=== PATIENT | male | born 1980 | race African-American/Black ===

== ENCOUNTER 2018-04-13 11:34 | Emergency (ER) | payer BC ==
--- NOTE | 2018-04-13 12:42 | RAD REPORT ---
EXAM DESCRIPTION: CT - Head Brain Wo Cont - 04/13/2018 12:32 pm CLINICAL HISTORY: Migraine headache, photophobia COMPARISON: None. TECHNIQUE: Axial 5 mm thick images of the head were obtained without IV contrast. All CT scans are performed using dose optimization technique as appropriate and may include automated exposure control or mA/KV adjustment according to patient size. FINDINGS: No intracranial hemorrhage, mass, edema or shift of mid-line structures. No acute infarcti on changes seen. No abnormal extra-axial fluid collections. Ventricles are normal. Mastoid air cells and visualized portions of the paranasal sinuses are clear. No acute bone findings seen. 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 Two small match ing defects in the parietal bone are probably from far remote ventriculostomy tubes. IMPRESSION: No hemorrhage, edema or acute intracranial finding.
[2018-04-13] MEDS ORDERED: METOCLOPRAMIDE 10 MG/2mL INJ ONE (12:59)
[2018-04-13] MEDS ORDERED: KETOROLAC 30 MG/ML INJ ONE (13:00)
[2018-04-13] MEDS ORDERED: DIPHENHYDRAMINE 50 MG/ML VIAL ONE (13:00)
[2018-04-13] MEDS ORDERED: NA CHLORIDE 0.9% 1,000 ML ONE (13:00)
--- NOTE | 2018-04-13 14:06 | EDPHYS ---
Physician Documentation [facility] Name: Sadi Ashton Age: 38 yrs Sex: Male : 1980 Arrival Date: 04/13/2018 Time: 11:38 Bed 10 Private MD: Jian Oakes T ED Physician Victor Hugo Lemus HPI: 04/13 13:00 This 38 yrs old Black Male presents to ER via Ambulatory with complaints of Headache. pm1 13:00 The patient complains of pain to the forehead and left eye. The patient describes the pm1 headache as aching, constant. Onset: The symptoms/episode began/occurred 4 day(s) ago. Associated signs and symptoms: Pertinent positives: nausea, Photophobia Pertinent negatives: fever, neck stiffness, paresthesias, vision changes, vision loss, vomiting, weakness. Severity of symptoms: in the emergency department the pain is actually worse. Headache History: Other Hx of migraines. The symptoms are alleviated by nothing. the symptoms are aggravated by lights. The patient has experienced similar episodes in the past, a few times. The patient has been recently seen by a physician: the patient's primary care provider, Dr. Oakes earlier today. Historical: - Allergies: 11:51 No Known Allergies; jl7 - Home Meds: 11:51 None [Active]; jl7 - PMHx: 11:51 Migraines; jl7 - PSHx: 11:51 None; jl7 - Immunization history:: Adult Immunizations up to date. - Social history:: Smoking status: Patient/guardian denies using tobacco. - Ebola Screening: : No symptoms or risks identified at this time. ROS: 13:00 Constitutional: Negative for fever, chills, and weight loss, Eyes: Negative for injury, pm1 pain, redness, and discharge, ENT: Negative for injury, pain, and discharge, Neck: Negative for injury, pain, and swelling, Cardiovascular: Negative for chest pain, palpitations, and edema, Respiratory: Negative for shortness of breath, cough, wheezing, and pleuritic chest pain, Abdomen/GI: Negative for abdominal pain, nausea, vomiting, diarrhea, and constipation, Back: Negative for injury and pain, MS/Extremity: Negative for injury and deformity, Skin: Negative for injury, rash, and discoloration. 13:00 Neuro: Positive for headache, Negative for dizziness, gait disturbance, loss of consciousness, numbness, seizure activity, tingling, weakness. Exam: 13:00 Constitutional: This is a well developed, well nourished patient who is awake, alert, pm1 and in no acute distress. Head/Face: Normocephalic, atraumatic. Eyes: Pupils equal round and reactive to light, extra-ocular motions intact. Lids and lashes normal. Conjunctiva and sclera are non-icteric and not injected. Cornea within normal limits. Periorbital areas with no swelling, redness, or edema. ENT: Nares patent. No nasal discharge, no septal abnormalities noted. Tympanic membranes are normal and external auditory canals are clear. Oropharynx with no redness, swelling, or masses, exudates, or evidence of obstruction, uvula midline. Mucous membranes moist. Neck: Trachea midline, no thyromegaly or masses palpated, and no cervical lymphadenopathy. Supple, full range of motion without nuchal rigidity, or vertebral point tenderness. No Meningismus. Chest/axilla: Normal chest wall appearance and motion. Nontender with no deformity. No lesions are appreciated. Cardiovascular: Regular rate and rhythm with a normal S1 and S2. No gallops, murmurs, or rubs. Normal PMI, no JVD. No pulse deficits. Respiratory: Lungs have equal breath sounds bilaterally, clear to auscultation and percussion. No rales, rhonchi or wheezes noted. No increased work of breathing, no retractions or nasal flaring. Abdomen/GI: Soft, non-tender, with normal bowel sounds. No distension or tympany. No guarding or rebound. No evidence of tenderness throughout. Back: No spinal tenderness. No costovertebral tenderness. Full range of motion. Skin: Warm, dry with normal turgor. Normal color with no rashes, no lesions, and no evidence of cellulitis. MS/ Extremity: Pulses equal, no cyanosis. Neurovascular intact. Full, normal range of motion. 13:00 Neuro: Orientation: is normal, Mentation: is normal, Cranial nerves: CN II- XII are normal as tested, Cerebellar function: normal finger to nose testing, Motor: moves all fours, strength is normal, strength is 5/5 in all extremities, Sensation: is normal, no obvious gross deficits, Gait: is steady, at a normal pace, without difficulty. Vital Signs: 11:51 BP 125 / 85; Pulse 78; Resp 16 S; Temp 99.1(O); Pulse Ox 100% on R/A; Weight 115.67 kg jl7 (R); Height 6 ft. 3 in. (190.50 cm) (R); Pain 6/10; 11:51 Body Mass Index 31.87 (115.67 kg, 190.50 cm) jl7 MDM: 12:12 Patient medically screened. pm1 14:05 Data reviewed: vital signs. Data interpreted: Pulse oximetry: on room air is 100 %. pm1 Interpretation: normal. Counseling: I had a detailed discussion with the patient and/or guardian regarding: the historical points, exam findings, and any diagnostic results supporting the discharge/admit diagnosis, radiology results, the need for outpatient follow up, to return to the emergency department if symptoms worsen or persist or if there are any questions or concerns that arise at home. 04/13 12:22 Order name: CT Head Brain wo Cont; Complete Time: 12:42 pm1 Administered Medications: 13:09 Drug: Reglan 10 mg Route: IVP; Site: left antecubital; iw 14:14 Follow up: Response: No adverse reaction; Pain is decreased iw 13:09 Drug: NS 0.9% 1000 ml Route: IV; Rate: 1000 ml; Site: left antecubital; iw 13:10 Drug: Benadryl 25 mg Route: IVP; Site: left antecubital; iw 14:14 Follow up: Response: No adverse reaction; Pain is decreased iw 13:10 Drug: TORadol 30 mg Route: IVP; Site: left antecubital; iw 14:14 Follow up: Response: No adverse reaction iw Disposition: 19:07 Co-signature as Attending Physician, Victor Hugo Lemus MD. rn Disposition: 04/13/18 14:06 Discharged to Home. Impression: Headache. - Condition is Stable. - Discharge Instructions: Migraine Headache. - Prescriptions for Fiorinal 50- 325-40 mg Oral Capsule - take 1 capsule by ORAL route every 4 hours As needed - not to exceed 6 capsules per day; 20 capsule. - Medication Reconciliation Form, Thank You Letter, Work release form form. - Follow up: Emergency Department; When: As needed; Reason: Worsening of condition. Follow up: Jian Oakes MD; When: 2 - 3 days; Reason: Recheck today's complaints, Continuance of care, Re-evaluation by your physician. - Problem is new. - Symptoms have improved. Signatures: Dispatcher [employer] EDLisa Kruger, RN RN Victor Hugo Hunter MD MD rn Marinas, Patrick, RIGGING LOFT REPAIRER RIGGING LOFT REPAIRER pm1 Sammi Reyez, RN RN jl7 Corrections: (The following items were deleted from the chart) 14:15 14:06 04/13/2018 14:06 Discharged to Home. Impression: Headache. Condition is Stable. iw Forms are Medication Reconciliation Form, Thank You Letter, Antibiotic Education, Prescription Opioid Use. Follow up: Emergency Department; When: As needed; Reason: Worsening of condition. Follow up: Jian Oakes; When: 2 - 3 days; Reason: Recheck today's complaints, Continuance of care, Re-evaluation by your physician. Problem is new. Symptoms have improved. pm1
--- NOTE | 2018-04-13 14:06 | ER ---
Nurse's Notes [facility] Name: Sadi Ashton Age: 38 yrs Sex: Male : 1980 Arrival Date: 04/13/2018 Time: 11:38 Bed 10 Private MD: Jian Oakes T Diagnosis: Headache Presentation: 04/13 11:48 Presenting complaint: Patient states: "Dr. Childs sent me because I've been having jl7 migraines since Monday. The light bother's me and I feel like my face is sore." Denies numbness, weakness, blurred vision. Transition of care: patient was not received from another setting of care. Onset of symptoms was April 09, 2018. Risk Assessment: Do you want to hurt yourself or someone else? Patient reports no desire to harm self or others. Initial Sepsis Screen: Does the patient meet any 2 criteria? No. Patient's initial sepsis screen is negative. Does the patient have a suspected source of infection? No. Patient's initial sepsis screen is negative. Care prior to arrival: None. 11:48 Method Of Arrival: Ambulatory [facility] 11:48 Acuity: IMER 3 7 Triage Assessment: 11:51 Headache History: The patient has had previous headaches and this one is similar to jl7 previous episodes. General: Appears in no apparent distress. uncomfortable, Behavior is calm, cooperative, appropriate for age. Pain: Complains of pain in headache Pain does not radiate. Pain currently is 6 out of 10 on a pain scale. Quality of pain is described as sharp, squeezing, Pain began 5 days ago Is continuous, Also complains of nausea. Neuro: Level of Consciousness is awake, alert, obeys commands, Oriented to person, place, time, situation, Moves all extremities. Gait is steady, Speech is normal, Facial symmetry appears normal. Historical: - Allergies: 11:51 No Known Allergies; jl7 - Home Meds: 11:51 None [Active]; jl7 - PMHx: 11:51 Migraines; jl7 - PSHx: 11:51 None; jl7 - Immunization history:: Adult Immunizations up to date. - Social history:: Smoking status: Patient/guardian denies using tobacco. - Ebola Screening: : No symptoms or risks identified at this time. Screenin:48 Abuse screen: Denies threats or abuse. Denies injuries from another. Nutritional hj screening: No deficits noted. Tuberculosis screening: No symptoms or risk factors identified. Fall Risk None identified. Assessment: 11:48 General: Appears in no apparent distress. uncomfortable, Behavior is calm, cooperative, hj appropriate for age. Pain: Complains of pain in face, head. Neuro: Level of Consciousness is awake, alert, obeys commands, Oriented to person, place, time, situation, Appropriate for age Reports headache in left. Cardiovascular: Capillary refill < 3 seconds Patient's skin is warm and dry. Respiratory: Airway is patent Respiratory effort is even, unlabored, Respiratory pattern is regular, symmetrical. GI: No signs and/or symptoms were reported involving the gastrointestinal system. : No signs and/or symptoms were reported regarding the genitourinary system. EENT: No signs and/or symptoms were reported regarding the EENT system. Derm: No signs and/or symptoms reported regarding the dermatologic system. Musculoskeletal: No signs and/or symptoms reported regarding the musculoskeletal system. 14:05 Reassessment: Patient appears in no apparent distress at this time. Patient and/or iw family updated on plan of care and expected duration. Pain level reassessed. Patient is alert, oriented x 3, equal unlabored respirations, skin warm/dry/pink. Patient states feeling better. Patient states symptoms have improved. Vital Signs: 11:51 BP 125 / 85; Pulse 78; Resp 16 S; Temp 99.1(O); Pulse Ox 100% on R/A; Weight 115.67 kg jl7 (R); Height 6 ft. 3 in. (190.50 cm) (R); Pain 6/10; 11:51 Body Mass Index 31.87 (115.67 kg, 190.50 cm) jl7 ED Course: 11:38 Patient arrived in ED. mr 11:38 Jian Oakes MD is Private Physician. mr 11:51 Triage completed. jl7 11:51 Arm band placed on left wrist. jl7 12:07 Rigo Jacobs RN is Primary Nurse. hj 12:09 Brendan Dykes NP is PHCP. pm1 12:09 Victor Hugo Lemus MD is Attending Physician. pm1 12:17 Patient has correct armband on for positive identification. Placed in gown. Bed in low hj position. Call light in reach. Side rails up X 1. Adult w/ patient. 12:30 CT Head Brain wo Cont In Process Unspecified. EDMS 12:44 Inserted saline lock: 20 gauge in left antecubital area, using aseptic technique. iw 12:45 Primary Nurse role handed off by Rigo Jacobs, FIONA iw 12:45 Lisa Fuller, RN is Primary Nurse. iw 14:06 Jian Oakes MD is Referral Physician. pm1 14:06 No provider procedures requiring assistance completed. IV discontinued, intact, iw bleeding controlled, No redness/swelling at site. Pressure dressing applied. Administered Medications: 13:09 Drug: Reglan 10 mg Route: IVP; Site: left antecubital; iw 14:14 Follow up: Response: No adverse reaction; Pain is decreased iw 13:09 Drug: NS 0.9% 1000 ml Route: IV; Rate: 1000 ml; Site: left antecubital; iw 13:10 Drug: Benadryl 25 mg Route: IVP; Site: left antecubital; iw 14:14 Follow up: Response: No adverse reaction; Pain is decreased iw 13:10 Drug: TORadol 30 mg Route: IVP; Site: left antecubital; iw 14:14 Follow up: Response: No adverse reaction iw Outcome: 14:06 Discharge ordered by MD. pm1 14:14 Discharged to home ambulatory. iw 14:14 Condition: good 14:14 Discharge instructions given to patient, Instructed on discharge instructions, follow up and referral plans. medication usage, Demonstrated understanding of instructions, follow-up care, medications, Prescriptions given X 1. 14:15 Patient left the ED. iw Signatures: Dispatcher [employer] [facility] Berna Jonas Irene, FIONA JAIMES iw Rigo Jacobs, RN Brendan Lincoln, WALLY BUSINESS TEACHER pm1 Sammi Reyez RN RN jl7
== END 2018-04-13 14:15 | disposition home or self-care (01) ==
LOC: ER 11:34
DX: R51 Headache (principal)
CPT/HCPCS: 70450; 96374; 96375; 99284; J2765; J7030

== ENCOUNTER 2019-10-22 12:45 | Emergency (ER) | payer BC ==
[2019-10-22] MEDS ORDERED: dexAMETHasone 4 MG TAB ONE (14:45)
--- NOTE | 2019-10-22 16:25 | RAD REPORT ---
EXAM DESCRIPTION: US - Extremity Venous Uni Ltd - 10/22/2019 4:20 pm CLINICAL HISTORY: Right lower extremity pain COMPARISON: None. TECHNIQUE: Real-time sonographic evaluation of the right lower extremity deep venous systems was per formed. FINDINGS: Normal compressibility, flow augmentation, phasic flow and spontaneous flow are identified in the right lower extremity common femoral, superficial femoral, popliteal and posterior tibial vei ns. No intraluminal filling defects seen. IMPRESSION: No DVT in the right lower extremity.
--- NOTE | 2019-10-22 16:30 | EDPHYS ---
Physician Documentation [facility] Name: Sadi Ashton Age: 39 yrs Sex: Male : 1980 Arrival Date: 10/22/2019 Time: 12:48 Bed 11 Private MD: Jian Oakes T ED Physician Jona Weinstein HPI: 10/22 15:43 This 39 yrs old Black Male presents to ER via Ambulatory with complaints of Leg Pain. reji 15:43 The patient presents with decreased range of motion, pain. The complaints affect the reji right calf. Context: The problem was sustained at an unknown site. Onset: The symptoms/episode began/occurred 2 day(s) ago. Modifying factors: The symptoms are alleviated by elevating leg, remaining still, the symptoms are aggravated by movement, weight bearing. Associated signs and symptoms: The patient has no apparent associated signs or symptoms. Treatment prior to arrival includes: no previous treatment. Severity of symptoms: At their worst the symptoms were mild, in the emergency department the symptoms are unchanged. The patient has not experienced similar symptoms in the past. Historical: - Allergies: 13:42 No Known Allergies; ca1 - Home Meds: 13:42 None [Active]; ca1 - PMHx: 13:42 Migraines; ca1 - PSHx: 13:42 Hernia repair; ca1 - Immunization history:: Adult Immunizations not up to date. - Coronavirus screen:: The patient has NOT traveled to [place], [place], or [place] in the past 14 days. The patient has NOT had contact with known/suspected case of Coronavirus?. - Social history:: Smoking status: Patient denies any tobacco usage or history of. - Family history:: not pertinent. - Ebola Screening: : Patient negative for fever greater than or equal to 101.5 degrees Fahrenheit, and additional compatible Ebola Virus Disease symptoms Patient denies exposure to infectious person Patient denies travel to an Ebola-affected area in the 21 days before illness onset No symptoms or risks identified at this time. ROS: 15:43 Constitutional: Negative for fever, chills, and weight loss, Eyes: Negative for injury, reji pain, redness, and discharge, ENT: Negative for injury, pain, and discharge, Neck: Negative for injury, pain, and swelling, Cardiovascular: Negative for chest pain, palpitations, and edema, Respiratory: Negative for shortness of breath, cough, wheezing, and pleuritic chest pain, Abdomen/GI: Negative for abdominal pain, nausea, vomiting, diarrhea, and constipation, Back: Negative for injury and pain, : Negative for injury, bleeding, discharge, and swelling, Skin: Negative for injury, rash, and discoloration, Neuro: Negative for headache, weakness, numbness, tingling, and seizure, Psych: Negative for depression, anxiety, suicide ideation, homicidal ideation, and hallucinations, Allergy/Immunology: Negative for hives, rash, and allergies, Endocrine: Negative for neck swelling, polydipsia, polyuria, polyphagia, and marked weight changes, Hematologic/Lymphatic: Negative for swollen nodes, abnormal bleeding, and unusual bruising. 15:43 MS/extremity: Positive for decreased range of motion, pain, tenderness, of the right calf. Exam: 15:43 Constitutional: This is a well developed, well nourished patient who is awake, alert, reji and in no acute distress. Head/Face: Normocephalic, atraumatic. Eyes: Pupils equal round and reactive to light, extra-ocular motions intact. Lids and lashes normal. Conjunctiva and sclera are non-icteric and not injected. Cornea within normal limits. Periorbital areas with no swelling, redness, or edema. ENT: Nares patent. No nasal discharge, no septal abnormalities noted. Tympanic membranes are normal and external auditory canals are clear. Oropharynx with no redness, swelling, or masses, exudates, or evidence of obstruction, uvula midline. Mucous membranes moist. Neck: Trachea midline, no thyromegaly or masses palpated, and no cervical lymphadenopathy. Supple, full range of motion without nuchal rigidity, or vertebral point tenderness. No Meningismus. Chest/axilla: Normal chest wall appearance and motion. Nontender with no deformity. No lesions are appreciated. Cardiovascular: Regular rate and rhythm with a normal S1 and S2. No gallops, murmurs, or rubs. Normal PMI, no JVD. No pulse deficits. Respiratory: Lungs have equal breath sounds bilaterally, clear to auscultation and percussion. No rales, rhonchi or wheezes noted. No increased work of breathing, no retractions or nasal flaring. Abdomen/GI: Soft, non-tender, with normal bowel sounds. No distension or tympany. No guarding or rebound. No evidence of tenderness throughout. Back: No spinal tenderness. No costovertebral tenderness. Full range of motion. Male : Normal genitalia with no discharge or lesions. Skin: Warm, dry with normal turgor. Normal color with no rashes, no lesions, and no evidence of cellulitis. Neuro: Awake and alert, GCS 15, oriented to person, place, time, and situation. Cranial nerves II-XII grossly intact. Motor strength 5/5 in all extremities. Sensory grossly intact. Cerebellar exam normal. Normal gait. Psych: Awake, alert, with orientation to person, place and time. Behavior, mood, and affect are within normal limits. 15:43 Musculoskeletal/extremity: ROM: full passive range of motion, limited active range of motion, Circulation is intact in all extremities. Sensation intact. Compartment Syndrome exam of affected extremity: is normal. DVT Exam: no swelling, negative Homans' sign noted on exam, no appreciated bluish discoloration, no erythema, no increased warmth, pain, tenderness. Vital Signs: 13:42 BP 140 / 74; Pulse 63; Resp 17 S; Temp 97.9(O); Pulse Ox 99% on R/A; Weight 111.58 kg ca1 (R); Height 6 ft. 3 in. (190.50 cm) (R); Pain 6/10; 13:42 Body Mass Index 30.75 (111.58 kg, 190.50 cm) ca1 MDM: 14:33 Patient medically screened. [facility] 15:45 Data reviewed: vital signs, nurses notes, lab test result(s), radiologic studies, [facility] ultrasound. 10/22 15:43 Order name: Comprehensive Metabolic Panel; Complete Time: 16:56 [facility] 10/22 15:43 Order name: Extremity Venous Unilateral Ltd; Complete Time: 16:29 [facility] 10/22 16:57 Order name: Magnesium [facility] Administered Medications: 16:30 Not Given (Patient Refused): NS 0.9% 500 ml IV at bolus once iw 17:27 Not Given (Patient Refused): TORadol 30 mg IVP once iw Disposition: 10/22/19 16:29 Discharged to Home. Impression: Pain in right lower leg. - Condition is Stable. - Discharge Instructions: Musculoskeletal Pain. - Prescriptions for Ibuprofen 600 mg Oral Tablet - take 1 tablet by ORAL route every 6 hours As needed take with food; 20 tablet. - Medication Reconciliation Form, Thank You Letter, Antibiotic Education, Prescription Opioid Use, Work release form form. - Follow up: Jian Oakes; When: 2 - 3 days; Reason: Recheck today's complaints, Continuance of care, Re-evaluation by your physician. - Problem is new. - Symptoms have improved. Signatures: Dispatcher [employer] EDMS Maira Queen Jona Weinstein MD MD cha Williams, Irene, RN RN iw Gretchen Hauser RN RN ca1 Corrections: (The following items were deleted from the chart) 17:27 16:38 Labs - recollect needed ordered. bd iw 17:29 16:29 10/22/2019 16:29 Discharged to Home. Impression: Pain in right lower leg. iw Condition is Stable. Discharge Instructions: Musculoskeletal Pain. Prescriptions for Ibuprofen 600 mg Oral Tablet - take 1 tablet by ORAL route every 6 hours As needed take with food; 20 tablet. and Forms are Medication Reconciliation Form, Thank You Letter, Antibiotic Education, Prescription Opioid Use. Follow up: Jian Oakes; When: 2 - 3 days; Reason: Recheck today's complaints, Continuance of care, Re-evaluation by your physician. Problem is new. Symptoms have improved. reji
--- NOTE | 2019-10-22 16:30 | ER ---
Nurse's Notes [facility] Name: Sadi Ashton Age: 39 yrs Sex: Male : 1980 Arrival Date: 10/22/2019 Time: 12:48 Bed 11 Private MD: Jian Oakes T Diagnosis: Pain in right lower leg Presentation: 10/22 13:39 Presenting complaint: Patient states: Right Calf cramp this morning, hurts more when ca1 walking. Transition of care: patient was not received from another setting of care. Onset of symptoms was October 22, 2019. Risk Assessment: Do you want to hurt yourself or someone else? Patient reports no desire to harm self or others. Initial Sepsis Screen: Does the patient meet any 2 criteria? No. Patient's initial sepsis screen is negative. Does the patient have a suspected source of infection? No. Patient's initial sepsis screen is negative. Care prior to arrival: None. 13:39 Method Of Arrival: Ambulatory ca1 13:39 Acuity: IMER 4 ca1 Historical: - Allergies: 13:42 No Known Allergies; ca1 - Home Meds: 13:42 None [Active]; ca1 - PMHx: 13:42 Migraines; ca1 - PSHx: 13:42 Hernia repair; ca1 - Immunization history:: Adult Immunizations not up to date. - Coronavirus screen:: The patient has NOT traveled to [place], [place], or [place] in the past 14 days. The patient has NOT had contact with known/suspected case of Coronavirus?. - Social history:: Smoking status: Patient denies any tobacco usage or history of. - Family history:: not pertinent. - Ebola Screening: : Patient negative for fever greater than or equal to 101.5 degrees Fahrenheit, and additional compatible Ebola Virus Disease symptoms Patient denies exposure to infectious person Patient denies travel to an Ebola-affected area in the 21 days before illness onset No symptoms or risks identified at this time. Screenin:39 Abuse screen: Denies threats or abuse. Denies injuries from another. Nutritional ca1 screening: No deficits noted. Tuberculosis screening: No symptoms or risk factors identified. Fall Risk None identified. Assessment: 14:39 General: Appears in no apparent distress. comfortable, Behavior is calm, cooperative, ca1 appropriate for age. Pain: Complains of pain in right calf Pain does not radiate. Pain currently is 6 out of 10 on a pain scale. Pain began this morning Aggravated by weight bearing. Neuro: Level of Consciousness is awake, alert, obeys commands, Oriented to person, place, time, situation, Appropriate for age. Derm: Skin is intact, is healthy with good turgor, Skin is pink, warm \T\ dry. Musculoskeletal: Circulation, motion, and sensation intact. Capillary refill < 3 seconds, Range of motion: intact in all extremities. Vital Signs: 13:42 BP 140 / 74; Pulse 63; Resp 17 S; Temp 97.9(O); Pulse Ox 99% on R/A; Weight 111.58 kg ca1 (R); Height 6 ft. 3 in. (190.50 cm) (R); Pain 6/10; 13:42 Body Mass Index 30.75 (111.58 kg, 190.50 cm) ca1 ED Course: 12:48 Patient arrived in ED. rg4 12:48 Jian Oakes MD is Private Physician. rg4 13:41 Triage completed. ca1 13:42 Arm band placed on right wrist. ca1 14:33 Jona Weinstein MD is Attending Physician. reji 14:39 Patient has correct armband on for positive identification. Bed in low position. Call ca1 light in reach. Side rails up X 1. 15:36 Lisa Fuller, RN is Primary Nurse. iw 16:21 Extremity Venous Unilateral Ltd In Process Unspecified. EDMS 16:29 Jian Oakes MD is Referral Physician. reji 17:28 No provider procedures requiring assistance completed. Patient did not have IV access iw during this emergency room visit. Administered Medications: 16:30 Not Given (Patient Refused): NS 0.9% 500 ml IV at bolus once iw 17:27 Not Given (Patient Refused): TORadol 30 mg IVP once iw Outcome: 16:29 Discharge ordered by . reji 17:28 Discharged to home ambulatory, with family. iw 17:28 Condition: good 17:28 Discharge instructions given to patient, family, Instructed on discharge instructions, follow up and referral plans. medication usage, Demonstrated understanding of instructions, follow-up care, medications, Prescriptions given X 1. 17:29 Patient left the ED. iw Signatures: Dispatcher [employer] EDMT Jona Weinstein MD MD cha Williams, Irene, RN RN iw Kamala Vo rg4 Acob, Gretchen, RN RN ca1 Corrections: (The following items were deleted from the chart) 13: 13:39 Acuity: IMER 3 ca1 ca1 14:40 14:39 Pain: Complains of pain in right calf Aggravated by weight bearing, ca1 ca1
[2019-10-22 16:52] LABS: Albumin 4.2 g/dL (3.4-5.0); Bilirubin Total 0.5 mg/dL (0.2-1.0); Protein, Total 8.2 g/dL (6.4-8.2)
[2019-10-22 17:35] VITALS: BP 140/74; TEMP 97.9; O2SAT 99
== END 2019-10-22 17:29 | disposition home or self-care (01) ==
LOC: ER 12:45
DX: M79.604 Pain in right leg (principal)
CPT/HCPCS: 36415; 80053; 83735; 93971; 99283; J8540

== ENCOUNTER 2022-11-29 19:30 | Emergency (ER) | payer BC ==
[2022-11-29] MEDS ORDERED: predniSONE 20 MG TAB ONE (20:34)
[2022-11-29] MEDS ORDERED: KETOROLAC 30 MG/ML INJ ONE (20:35)
--- NOTE | 2022-12-16 14:11 | EDPHYS ---
Physician Documentation [facility] Name: Sadi Ashton Age: 42 yrs Sex: Male : 1980 Arrival Date: 11/29/2022 Time: 19:33 Bed 10 Private MD: ED Physician Cain White HPI: 11/29 21:56 This 42 yrs old Black Male presents to ER via Ambulatory with complaints of Low Back kb Pain, Leg Pain. 21:56 The patient presents with pain that is acute. The symptoms are located in the left low kb back. The pain radiates to the left leg. The problem was sustained from unknown cause. Onset: The symptoms/episode began/occurred 1 week(s) ago. Modifying factors: The patient symptoms are alleviated by nothing, the patient symptoms are aggravated by any movement. Associated signs and symptoms: The patient has no apparent associated signs or symptoms. Severity of symptoms: At their worst the symptoms were moderate, in the emergency department the symptoms are unchanged. The patient has experienced a previous episode. The patient has not recently seen a physician. Historical: - Allergies: 19:58 No Known Allergies; ll3 - Home Meds: 19:58 None [Active]; ll3 - PMHx: 19:58 Migraines; ll3 - PSHx: 19:58 None; ll3 - Immunization history:: Client reports receiving the 2nd dose of the Covid vaccine. - Social history:: Smoking status: Patient denies any tobacco usage or history of. ROS: 20:53 Constitutional: Negative for fever, chills, and weight loss. kb 21:56 Back: Positive for pain at rest, pain with movement, radiated pain, of the left low kb back. 21:56 All other systems are negative. Exam: 21:56 Constitutional: This is a well developed, well nourished patient who is awake, alert, kb and in no acute distress. Head/Face: Normocephalic, atraumatic. ENT: Moist Mucous membranes Cardiovascular: Regular rate and rhythm with a normal S1 and S2. No gallops, murmurs, or rubs. No pulse deficits. Respiratory: Respirations even and unlabored. No increased work of breathing. Talking in full sentences Abdomen/GI: Soft, non-tender. No distention Skin: Warm, dry with normal turgor. Normal color. MS/ Extremity: Pulses equal, no cyanosis. Neurovascular intact. Full, normal range of motion. Neuro: Awake and alert, GCS 15, oriented to person, place, time, and situation. Moves all extremities. Normal gait. 21:56 Back: pain, that is moderate, of the left low back, ROM is normal, normal spinal alignment noted, CVA tenderness, is absent. Vital Signs: 19:56 BP 139 / 98; Pulse 85; Resp 17; Temp 97.3(TE); Pulse Ox 97% on R/A; Weight 122.47 kg ll3 (R); Height 6 ft. 2 in. (R); Pain 8/10; 21:17 BP 138 / 99; Pulse 87; Resp 18; Pulse Ox 100% ; mb9 19:56 Body Mass Index 34.67 (122.47 kg, 187.96 cm) ll3 19:56 Pain Scale: Adult ll3 MDM: 20:06 Patient medically screened. kb 21:54 Differential diagnosis: strain, sciatica. Data reviewed: vital signs, nurses notes. kb Counseling: I had a detailed discussion with the patient and/or guardian regarding: the historical points, exam findings, and any diagnostic results supporting the discharge/admit diagnosis, the need for outpatient follow up, a family practitioner, to return to the emergency department if symptoms worsen or persist or if there are any questions or concerns that arise at home. ED course: Patient is a 42-year-old male who presents for pain to left low back/upper buttock that radiates down left leg for 1 week. Reports he has had this once before due to sciatica. On exam patient has mild tenderness to left low back/upper buttock. Ambulates with steady gait. Nontoxic in appearance, respirations even and unlabored. Patient educated on nonpharmacological treatment as well as prescribed medications. Verbal understanding received.. Administered Medications: 20:35 Drug: Ketorolac IM 30 mg Route: IM; Site: right deltoid; kr3 20:35 Drug: predniSONE PO 40 mg Route: PO; kr3 Disposition Summary: 11/29/22 21:08 Discharge Ordered Location: [facility] Condition: Stable kb Diagnosis - Sciatica, left side kb Followup: kb - With: Emergency Department - When: As needed - Reason: Worsening of condition Followup: kb - With: Private Physician - When: 2 - 3 days - Reason: Recheck today's complaints, Continuance of care, Re-evaluation by your physician Discharge Instructions: - Discharge Summary Sheet kb - Sciatica, [id number] kb - Back Exercises, [id number] kb Forms: - Medication Reconciliation Form kb - Thank You Letter kb - Antibiotic Education kb - Prescription Opioid Use kb - Work release form eb Prescriptions: - Ibuprofen 800 mg Oral Tablet - take 1 tablet by ORAL route every 8 hours As needed take with food; 30 tablet; kb Refills: 0, Product Selection Permitted - Prednisone 20 mg Oral Tablet - take 1 tablet by ORAL route once daily for 5 days; 5 tablet; Refills: 0, kb Product Selection Permitted - Cyclobenzaprine 10 mg Oral Tablet - take 1 tablet by ORAL route every 8 hours As needed; 21 tablet; Refills: 0, kb Product Selection Permitted Signatures: Lisbet Diehl FNP-C FNP-Ckb Loubet, Lynsea RN RN ll3 Brittany Madrigal RN RN kr3 Corrections: (The following items were deleted from the chart) 20:01 19:58 PSHx: None; ll3 ll3
--- NOTE | 2022-12-16 14:11 | ER ---
Nurse's Notes [facility] Name: Sadi Ashton Age: 42 yrs Sex: Male : 1980 Arrival Date: 11/29/2022 Time: 19:33 Bed 10 [facility] MD: Diagnosis: Sciatica, left side Presentation: 11/29 19:56 Chief complaint: Patient states: States "I takes me an hour to get out of bed in the ll3 mornings", c/o left low back pain that radiates down left leg 05/04. Coronavirus screen: Vaccine status: Patient reports receiving the 2nd dose of the covid vaccine. At this time, the client does not indicate any symptoms associated with coronavirus-19. Ebola Screen: No symptoms or risks identified at this time. Initial Sepsis Screen: Does the patient meet any 2 criteria? No. Patient's initial sepsis screen is negative. Does the patient have a suspected source of infection? No. Patient's initial sepsis screen is negative. Risk Assessment: Do you want to hurt yourself or someone else? Patient reports no desire to harm self or others. Onset of symptoms was November 22, 2022. Care prior to arrival: None. 19:56 Method Of Arrival: Ambulatory ll3 19:56 Acuity: IMER 3 ll3 Triage Assessment: 20:56 General: Appears in no apparent distress. comfortable, Behavior is calm, cooperative, kr3 appropriate for age. Historical: - Allergies: 19:58 No Known Allergies; ll3 - Home Meds: 19:58 None [Active]; ll3 - PMHx: 19:58 Migraines; ll3 - PSHx: 19:58 None; ll3 - Immunization history:: Client reports receiving the 2nd dose of the Covid vaccine. - Social history:: Smoking status: Patient denies any tobacco usage or history of. Screenin:56 [facility] ED Fall Risk Assessment (Adult) History of falling in the last 3 months, kr3 including since admission No falls in past 3 months (0 pts) Confusion or Disorientation No (0 pts) Intoxicated or Sedated No (0 pts) Impaired Gait No (0 pts) Mobility Assist Device Used No (0 pt) Altered Elimination No (0 pt) Score/Fall Risk Level 0 - 2 = Low Risk Oriented to surroundings, Maintained a safe environment, Educated pt \\T\\ family on fall prevention, incl call for assistance when getting out of bed, Assessed \\T\\ reinforced patient's understanding of fall precautions, Hourly rounding (assess needs \\T\\ fall precautionary measures) done. Abuse screen: Denies threats or abuse. Nutritional screening: No deficits noted. Tuberculosis screening: No symptoms or risk factors identified. Assessment: 21:17 General: Appears in no apparent distress. Behavior is calm, cooperative. Pain: mb9 Complains of pain in back. Neuro: Level of Consciousness is awake, alert, obeys commands, Oriented to person, place, time, situation, Appropriate for age. Respiratory: Airway is patent Respiratory effort is even, unlabored, Respiratory pattern is regular, symmetrical. Derm: Skin is pink, warm \\T\\ dry. Musculoskeletal: Range of motion: intact in all extremities. Vital Signs: 19:56 BP 139 / 98; Pulse 85; Resp 17; Temp 97.3(TE); Pulse Ox 97% on R/A; Weight 122.47 kg ll3 (R); Height 6 ft. 2 in. (R); Pain 8/10; 21:17 BP 138 / 99; Pulse 87; Resp 18; Pulse Ox 100% ; mb9 19:56 Body Mass Index 34.67 (122.47 kg, 187.96 cm) ll3 19:56 Pain Scale: Adult ll3 ED Course: 19:33 Patient arrived in ED. ja2 19:58 Triage completed. ll3 19:58 Arm band placed on. ll3 20:05 Lisbet Diehl FNP-C is [facility]. kb 20:06 Cain White MD is Attending Physician. kb 20:09 Bed in low position. Call light in reach. Side rails up X 1. kr3 20:27 Brittany Madrigal, FIONA is Primary Nurse. kr3 21:18 No provider procedures requiring assistance completed. Patient did not have IV access mb9 during this emergency room visit. Administered Medications: 20:35 Drug: Ketorolac IM 30 mg Route: IM; Site: right deltoid; kr3 20:35 Drug: predniSONE PO 40 mg Route: PO; kr3 Outcome: 21:08 Discharge ordered by . kb 21:18 Discharged to home ambulatory. mb9 21:18 Condition: stable 21:18 Discharge instructions given to patient, Instructed on discharge instructions, follow up and referral plans. Demonstrated understanding of instructions, follow-up care, medications, Prescriptions given X 3. 21:18 Patient left the ED. mb9 Signatures: Lisbet Diehl, LIDA DEL ROSARIO-Radha Abrue Lynsea RN RN [email or web address] Brittany Madrigal RN RN [email or web address] Adrienne Watkins RN RN mb9 Corrections: (The following items were deleted from the chart) 20:01 19:58 PSHx: None; bart 3
== END 2022-11-29 21:18 | disposition home or self-care (01) ==
LOC: ER 19:30
DX: M54.32 Sciatica, left side (principal)
CPT/HCPCS: 96372; 99283; J7512

== ENCOUNTER 2023-08-25 19:49 | Emergency (ER) | payer BC ==
--- NOTE | 2023-08-25 20:51 | EDPHYS ---
Physician Documentation [facility] Name: Sadi Ashton Age: 43 yrs Sex: Male : 1980 Arrival Date: 08/25/2023 Time: 19:49 Bed 11 Private MD: ED Physician Judson Escobar HPI: 08/25 20:48 This 43 yrs old Black Male presents to ER via Ambulatory with complaints of Runny Nose, snw Redness of Eye. 20:48 The patient or guardian reports flu symptoms, low-grade fever, no appetite, eye snw irritation, nasal congestion, nasal discharge. Onset: The symptoms/episode began/occurred acutely. Severity of symptoms: At their worst the symptoms were moderate. Associated signs and symptoms: The patient has no apparent associated signs or symptoms. It is unknown whether or not the patient has had similar symptoms in the past. The patient has not recently seen a physician. 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 - Social history:: Smoking status: Patient denies any tobacco usage or history of. Patient/guardian denies using alcohol, street drugs, IV drugs. ROS: 20:47 Eyes: Negative for injury, pain, + redness and discharge at right eye, snw 20:47 Neck: Negative for injury, pain, and swelling, Cardiovascular: Negative for chest pain, palpitations, and edema, Respiratory: Negative for shortness of breath, cough, wheezing, and pleuritic chest pain, Abdomen/GI: Negative for abdominal pain, nausea, vomiting, diarrhea, and constipation, Back: Negative for injury and pain, : Negative for injury, bleeding, discharge, and swelling, MS/Extremity: Negative for injury and deformity, Skin: Negative for injury, rash, and discoloration, Neuro: Negative for headache, weakness, numbness, tingling, and seizure, Psych: Negative for depression, anxiety, suicide ideation, homicidal ideation, and hallucinations, 20:47 Constitutional: Positive for body aches, malaise, 20:47 Eyes: Positive for 20:47 ENT: Positive for nasal discharge, sinus congestion, sore throat, Exam: 20:45 Constitutional: This is a well developed, well nourished patient who is awake, alert, snw and in no acute distress. Head/Face: Normocephalic, atraumatic. Eyes: Pupils equal round and reactive to light, extra-ocular motions intact. Lids and lashes normal. Conjunctiva and sclera are non-icteric but left injected with exudate in the inner. Cornea within normal limits. Periorbital areas with no swelling, redness, or edema. ENT: Nares patent. clear nasal discharge, no septal abnormalities noted. Tympanic membranes are normal and external auditory canals are clear. Oropharynx with mild redness, swelling, no masses, exudates, or evidence of obstruction, uvula midline. Mucous membranes moist. Neck: Trachea midline, no thyromegaly or masses palpated, and no cervical lymphadenopathy. Supple, full range of motion without nuchal rigidity, or vertebral point tenderness. No Meningismus. Chest/axilla: Normal chest wall appearance and motion. Nontender with no deformity. No lesions are appreciated. Cardiovascular: Regular rate and rhythm with a normal S1 and S2. No gallops, murmurs, or rubs. Normal PMI, no JVD. No pulse deficits. Respiratory: Lungs have equal breath sounds bilaterally, clear to auscultation and percussion. No rales, rhonchi or wheezes noted. No increased work of breathing, no retractions or nasal flaring. Abdomen/GI: Soft, non-tender, with normal bowel sounds. No distension or tympany. No guarding or rebound. No evidence of tenderness throughout. Back: No spinal tenderness. No costovertebral tenderness. Full range of motion. Skin: Warm, dry with normal turgor. Normal color with no rashes, no lesions, and no evidence of cellulitis. MS/ Extremity: Pulses equal, no cyanosis. Neurovascular intact. Full, normal range of motion. Neuro: Awake and alert, GCS 15, oriented to person, place, time, and situation. Cranial nerves II-XII grossly intact. Motor strength 5/5 in all extremities. Sensory grossly intact. Cerebellar exam normal. Normal gait. Psych: Awake, alert, with orientation to person, place and time. Behavior, mood, and affect are within normal limits. Vital Signs: 20:37 BP 152 / 93; Pulse 91; Resp 17 S; Temp 98.1(O); Pulse Ox 100% on R/A; Weight 122.47 kg; jw7 Height 6 ft. 3 in. ; Pain 0/10; 21:29 BP 142 / 83; Pulse 83; Resp 16; Pulse Ox 100% on R/A; Pain 6/10; km8 20:37 Body Mass Index 33.75 (122.47 kg, 190.5 cm) [facility] 20:37 Pain Scale: Adult jw7 21:29 Pain Scale: Adult km8 [place] Coma Score: 21:30 Eye Response: spontaneous(4). Motor Response: obeys commands(6). Verbal Response: km8 oriented(5). Total: 15. MDM: 20:45 Patient medically screened. snw 20:53 Data reviewed: vital signs, nurses notes. I considered the following discharge snw prescriptions or medication management in the emergency department Medications were administered in the Emergency Department. See MAR. Counseling: I had a detailed discussion with the patient and/or guardian regarding the historical points, exam findings, and any diagnostic results supporting the discharge/admit diagnosis, the need for outpatient follow up, for definitive care, to return to the emergency department if symptoms worsen or persist or if there are any questions or concerns that arise at home. Administered Medications: 21:27 CANCELLED (Other Intervention Used): erythromycinointment 1 application Ophthalmic once snw 21:29 Drug: ZyrTEC - Cetirizine PO 10 mg PO once Route: PO; km8 21:43 Follow up: Response: No adverse reaction 21:29 Drug: Famotidine PO 20 mg PO once Route: PO; km8 21:43 Follow up: Response: No adverse reaction 8 21:29 Drug: Amoxicillin-Clavulanate PO 875 mg PO once Route: PO; km8 21:43 Follow up: Response: No adverse reaction 8 21:29 Drug: predniSONE PO 40 mg PO once Route: PO; km8 21:43 Follow up: Response: No adverse reaction 8 21:29 Drug: Tobramycin Ophthalmic Ointment (0.3 %) 0.5 inches Ophthalmic once Route: km8 Ophthalmic; Site: right eye; 21:43 Follow up: Response: No adverse reaction 8 Disposition: 22:58 Co-signature as Attending Physician, Judson Escobar MD I reviewed the patient's care rt provided by the Advanced Practice Provider and agree with the diagnosis and treatment plan. Disposition Summary: 08/25/23 20:50 Discharge Ordered Notes: Location: Home snw Condition: Stable snw Diagnosis - Acute pansinusitis snw Followup: snw - With: Emergency Department - When: As needed - Reason: Worsening of condition Followup: snw - With: Private Physician - When: 2 - 3 days - Reason: Recheck today's complaints, Continuance of care, Re-evaluation by your physician Discharge Instructions: - Discharge Summary Sheet snw - Bacterial Conjunctivitis, Adult snw - Sinusitis, Adult snw Forms: - Work release form snw - Medication Reconciliation Form snw - Thank You Letter snw - Antibiotic Education snw - Prescription Opioid Use snw - Patient Portal Instructions snw - Leadership Thank You Letter snw Prescriptions: - Augmentin 875-125 mg Oral Tablet - take 1 tablet ORAL route every 12 hours for 10 days; 20 tablet; Refills: 0, snw Product Selection Permitted - Zyrtec 10 mg Oral Tablet - take 1 tablet ORAL route once daily As needed; 20 tablet; Refills: 0, Product snw Selection Permitted - Erythromycin 5 mg/gram (0.5 %) Ophthalmic ointment - apply 1 ribbon OPHTHALMIC route every 8 hours for 7 days; 1 Unspecified; snw Refills: 0, Product Selection Permitted - Prednisone 20 mg Oral Tablet - take 2 tablets ORAL route once daily for 5 days; 10 tablet; Refills: 0, Product snw Selection Permitted - Pepcid 20 mg Oral Tablet - take 1 tablet ORAL route once daily; 20 tablet; Refills: 0, Product Selection snw Permitted Signatures: Martita Godoy, PIZZAMAKER-C PIZZAMAKER-Csnw Kelsie Hernandez RN RN jw7 Judson Escobar MD MD rt Caitie Cole RN RN km8 Corrections: (The following items were deleted from the chart) 20:43 20:41 Home Meds: None; jw7 jw7 21:27 20:50 ERYTHromycin Ophthalmic Ointment 1 application Ophthalmic once ordered. snw snw 21:27 21:27 ERYTHromycin Ophthalmic Ointment 1 application Ophthalmic once ordered. snw snw
--- NOTE | 2023-08-25 20:51 | ER ---
Nurse's Notes [facility] Name: Sadi Ashton Age: 43 yrs Sex: Male : 1980 Arrival Date: 08/25/2023 Time: 19:49 Bed 11 Private MD: Diagnosis: Acute pansinusitis Presentation: 08/25 20:37 Chief complaint: Patient states: "Sinus drainage, with coughing up thick yellow mucus, jw7 right eye started burning with redness". Coronavirus screen: At this time, the client does not indicate any symptoms associated with coronavirus-19. Ebola Screen: No symptoms or risks identified at this time. Initial Sepsis Screen: Does the patient meet any 2 criteria? No. Patient's initial sepsis screen is negative. Does the patient have a suspected source of infection? No. Patient's initial sepsis screen is negative. Risk Assessment: Do you want to hurt yourself or someone else? Patient reports no desire to harm self or others. Onset of symptoms was August 21, 2023. 20:37 Method Of Arrival: Ambulatory [facility] 20:37 Acuity: IMER 3 jw7 Triage Assessment: 20:41 General: Appears in no apparent distress. uncomfortable, Behavior is calm, cooperative. jw7 Pain: Denies pain. EENT: Sclera/Cornea are reddened in outer aspect of conjuctiva of right eye, iris of right eye and inner aspect of conjuctiva of right eye Nares with drainage noted. Neuro: Siddiqui Agitation-Sedation Scale (RASS): 0 - Alert and Calm Level of Consciousness is awake, alert, obeys commands, Oriented to person, place, time, situation. Cardiovascular: No deficits noted. Respiratory: No deficits noted. Respiratory: Reports cough that is Airway is patent Trachea midline Respiratory effort is even, unlabored, Respiratory pattern is regular, symmetrical. GI: No deficits noted. GI: No signs and/or symptoms were reported involving the gastrointestinal system. : No deficits noted. No signs and/or symptoms were reported regarding the genitourinary system. Derm: No deficits noted. No signs and/or symptoms reported regarding the dermatologic system. Musculoskeletal: No deficits noted. No signs and/or symptoms reported regarding the musculoskeletal system. 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 - Social history:: Smoking status: Patient denies any tobacco usage or history of. Patient/guardian denies using alcohol, street drugs, IV drugs. Screenin:45 [facility] ED Fall Risk Assessment (Adult) History of falling in the last 3 months, jw7 including since admission No falls in past 3 months (0 pts) Score/Fall Risk Level 0 - 2 = Low Risk Oriented to surroundings, Maintained a safe environment. Abuse screen: Denies threats or abuse. Denies injuries from another. Nutritional screening: No deficits noted. Tuberculosis screening: No symptoms or risk factors identified. Assessment: 21:30 General: Appears in no apparent distress. comfortable, Behavior is calm, cooperative, km8 appropriate for age. Pain: Complains of pain in right eye. Neuro: Siddiqui Agitation-Sedation Scale (RASS): 0 - Alert and Calm Level of Consciousness is awake, alert, obeys commands, Oriented to person, place, time, situation. Cardiovascular: Capillary refill < 3 seconds Patient's skin is warm and dry. Respiratory: Airway is patent Respiratory effort is even, unlabored, Respiratory pattern is regular, symmetrical. GI: No signs and/or symptoms were reported involving the gastrointestinal system. : No signs and/or symptoms were reported regarding the genitourinary system. EENT: Eyes with exudate noted from right inner canthus Sclera/Cornea are reddened in right eye Reports nasal congestion. Derm: Skin is intact, is healthy with good turgor, Skin is dry, Skin is pink, warm \\T\\ dry. normal, Skin temperature is warm. Musculoskeletal: No signs and/or symptoms reported regarding the musculoskeletal system. Range of motion: intact in all extremities. Vital Signs: 20:37 BP 152 / 93; Pulse 91; Resp 17 S; Temp 98.1(O); Pulse Ox 100% on R/A; Weight 122.47 kg; jw7 Height 6 ft. 3 in. ; Pain 0/10; 21:29 BP 142 / 83; Pulse 83; Resp 16; Pulse Ox 100% on R/A; Pain 6/10; km8 20:37 Body Mass Index 33.75 (122.47 kg, 190.5 cm) jw7 20:37 Pain Scale: Adult jw7 21:29 Pain Scale: Adult km8 [place] Coma Score: 21:30 Eye Response: spontaneous(4). Motor Response: obeys commands(6). Verbal Response: km8 oriented(5). Total: 15. ED Course: 20:03 Patient arrived in ED. ag3 20:08 Martita Godoy FNP-C [facility] snw 20:08 Judson Escobar MD is Attending Physician. snw 20:41 Triage completed. jw7 20:41 Arm band placed on. jw7 20:45 Patient has correct armband on for positive identification. jw7 20:45 No provider procedures requiring assistance completed. Patient did not have IV access jw7 during this emergency room visit. 21:30 Pulse ox on. NIBP on. km8 21:43 Provided Education on: d/c teaching. km8 Administered Medications: 21:27 CANCELLED (Other Intervention Used): erythromycinointment 1 application Ophthalmic once snw 21:29 Drug: ZyrTEC - Cetirizine PO 10 mg PO once Route: PO; km8 21:43 Follow up: Response: No adverse reaction km8 21:29 Drug: Famotidine PO 20 mg PO once Route: PO; km8 21:43 Follow up: Response: No adverse reaction km8 21:29 Drug: Amoxicillin-Clavulanate PO 875 mg PO once Route: PO; km8 21:43 Follow up: Response: No adverse reaction km8 21:29 Drug: predniSONE PO 40 mg PO once Route: PO; km8 21:43 Follow up: Response: No adverse reaction km8 21:29 Drug: Tobramycin Ophthalmic Ointment (0.3 %) 0.5 inches Ophthalmic once Route: km8 Ophthalmic; Site: right eye; 21:43 Follow up: Response: No adverse reaction km8 Medication: 20:45 VIS not applicable for this client. jw7 Outcome: 20:50 Discharge ordered by . snw 21:42 Discharged to home ambulatory, km8 21:42 Condition: good 21:42 Discharge instructions given to patient, Instructed on discharge instructions, follow up and referral plans. medication usage, Demonstrated understanding of instructions, follow-up care, medications, Prescriptions given X 5 21:43 Patient left the ED. km8 Signatures: Martita Godoy, CAN LINE EXAMINER-C CAN LINE EXAMINER-Csnw Vicki Gomez ag3 Kelsie Hernandez RN RN jw7 Caitie Cole RN RN km8 Corrections: (The following items were deleted from the chart) 20:43 20:41 Home Meds: None; jwFarida jw7
[2023-08-25] MEDS ORDERED: CETIRIZINE HCL 5 MG TABLET ONE (21:35)
[2023-08-25] MEDS ORDERED: AMOX/K CLAV 875 MG TAB ONE (21:36)
[2023-08-25] MEDS ORDERED: predniSONE 20 MG TAB ONE (21:36)
[2023-08-25] MEDS ORDERED: FAMOTIDINE 20 MG TAB ONE (21:36)
[2023-08-25] MEDS ORDERED: TOBRAMYCIN SULF 0.3% OPTH OINT ONE (21:38)
[2023-08-25 21:55] VITALS: TEMP 98.1; O2SAT 100
[2023-08-25 21:57] VITALS: BP 142/83
== END 2023-08-25 21:43 | disposition home or self-care (01) ==
LOC: ER 19:49
DX: J01.40 Acute pansinusitis, unspecified (principal)
CPT/HCPCS: 99283; J7512

== ENCOUNTER → 2023-10-08 | Emergency (ER) | payer BC ==
[~2023-10-08] MED LIST: CEPHALEXIN 250 MG CAP ONE; NA CHLORIDE 0.9% 1,000 ML ONE; ONDANSETRON 4 MG (ODT) TAB ONE; metroNIDAZOLE 500 MG TABLET ONE
[2023-10-08 19:54] LABS: Absolute Lymphocytes (CBC) 2.5 K/uL (0.7-4.9); Hematocrit 43.4 % (39.6-49.0); Lymphocytes % 42.8 % (15.3-44.8); MCV 81.5 fL (80-100); MPV 7.8 fL (7.6-11.3); Platelets 234 thou/uL (152-406); RBC Red Blood Cell Count 5.32 M/uL (4.33-5.43)
[2023-10-08 20:24] LABS: Albumin 3.9 g/dL (3.4-5.0); Bilirubin Total 0.3 mg/dL (0.2-1.0); Potassium 3.6 mEq/L (3.5-5.1); Protein, Total 8.1 g/dL (6.4-8.2)
--- NOTE | 2023-10-08 20:56 | RAD REPORT ---
EXAM DESCRIPTION: CT - Soft Tissue Neck W/Contr CLINICAL HISTORY: Right upper neck , submandibular swelling COMPARISON: No comparisons TECHNIQUE All CT scans are performed using dose optimization technique as appropriate and may includ e automated exposure control or mA/KV adjustment according to patient size. FINDINGS: Nasopharyngeal tissues are normal in appearance. Fossa Rosenmller are normal. There is moderate enlargement of the right submandibular gland relative to the left. No ranula is see n. Normal thyroid gland. IMPRESSION: Moderate inflammatory changes involving the right submandibular gland. This may indicate sialadenitis.
--- NOTE | 2023-10-08 21:44 | ER ---
Nurse's Notes [facility] Name: Sadi Ashton Age: 43 yrs Sex: Male : 1980 Arrival Date: 10/08/2023 Time: 19:13 Bed 18 Private MD: Diagnosis: Right submandibular gland inflammation and infection, right submandibular gland sialodenitis Presentation: 10/08 19:29 Chief complaint: Patient states: Swelling to left side of neck onset Monday. Pt cm10 reports pain when trying to eat. Coronavirus screen: Vaccine status: Patient reports receiving the 2nd dose of the covid vaccine. Client denies travel out of the [place] in the last 14 days. Ebola Screen: Patient denies travel to an Ebola-affected area in the 21 days before illness onset. No symptoms or risks identified at this time. Initial Sepsis Screen: Does the patient meet any 2 criteria? No. Patient's initial sepsis screen is negative. Does the patient have a suspected source of infection? No. Patient's initial sepsis screen is negative. Risk Assessment: Do you want to hurt yourself or someone else? Patient reports no desire to harm self or others. Onset of symptoms was October 07, 2023. 19:29 Method Of Arrival: Ambulatory cm10 19:29 Acuity: IMER 3 cm10 Triage Assessment: 19:33 General: Appears in no apparent distress. comfortable, Behavior is calm, cooperative. cm10 Pain: Complains of pain in neck. EENT: No deficits noted. Swelling to right side of neck.. Neuro: No deficits noted. Level of Consciousness is awake, alert, obeys commands, Oriented to person, place, time, situation. Cardiovascular: No deficits noted. Patient's skin is warm and dry. Cardiovascular: Denies chest pain, shortness of breath. Respiratory: No deficits noted. Airway is patent Respiratory effort is even, unlabored, Respiratory pattern is regular, symmetrical. GI: No deficits noted. No signs and/or symptoms were reported involving the gastrointestinal system. : No deficits noted. No signs and/or symptoms were reported regarding the genitourinary system. Derm: No deficits noted. No signs and/or symptoms reported regarding the dermatologic system. Skin is intact, Skin is pink, warm \T\ dry. Musculoskeletal: No deficits noted. No signs and/or symptoms reported regarding the musculoskeletal system. Range of motion: intact in all extremities, Swelling present in neck. Historical: - Allergies: 19:32 No Known Allergies; cm10 - Home Meds: 19:32 None [Active]; cm10 - PMHx: 19:32 Migraines; cm10 - PSHx: 19:32 Tumor Removal (Bladder); cm10 - Immunization history:: Adult Immunizations up to date. - Social history:: Smoking status: Patient denies any tobacco usage or history of. - Family history:: not pertinent. Screenin:35 [facility] ED Fall Risk Assessment (Adult) History of falling in the last 3 months, jw7 including since admission No falls in past 3 months (0 pts) Score/Fall Risk Level 0 - 2 = Low Risk Oriented to surroundings, Maintained a safe environment, Educated pt \T\ family on fall prevention, incl call for assistance when getting out of bed. Abuse screen: Denies threats or abuse. Denies injuries from another. Nutritional screening: No deficits noted. Tuberculosis screening: No symptoms or risk factors identified. Assessment: 19:35 General: see triage assessment. jw7 20:30 Reassessment: Patient appears in no apparent distress at this time. No changes from jw7 previously documented assessment. Patient and/or family updated on plan of care and expected duration. Pain level reassessed. Patient is alert, oriented x 3, equal unlabored respirations, skin warm/dry/pink. 21:23 Reassessment: Patient appears in no apparent distress at this time. No changes from jw7 previously documented assessment. Patient and/or family updated on plan of care and expected duration. Pain level reassessed. Patient is alert, oriented x 3, equal unlabored respirations, skin warm/dry/pink. Vital Signs: 19:29 BP 164 / 95; Pulse 77; Resp 18; Temp 99; Pulse Ox 100% on R/A; Weight 120.2 kg; Height cm10 6 ft. 4 in. ; Pain 1/10; 20:06 BP 125 / 91; Pulse 70; Resp 16 S; Pulse Ox 97% on R/A; jw7 21:31 BP 124 / 80; Pulse 67; Resp 16 S; Pulse Ox 97% on R/A; jw7 19:29 Body Mass Index 32.26 (120.20 kg, 193.04 cm) [place] 19:29 Pain Scale: Adult cm10 ED Course: 19:15 Patient arrived in ED. jj6 19:24 John Banerjee MD is Attending Physician. sp4 19:24 Jona Moralez PA is PHCP. cp 19:32 Triage completed. cm10 19:33 Arm band placed on Patient placed in an exam room, on a stretcher. cm10 19:35 Patient has correct armband on for positive identification. Bed in low position. Call jw7 light in reach. 19:36 Kelsie Hernandez RN is Primary Nurse. jw7 19:49 CBC with Diff Sent. pm6 19:49 CMP Sent. pm6 19:49 Inserted saline lock: 20 gauge in right antecubital area, using aseptic technique. pm6 Blood collected. 20:47 CT Soft Tissue Neck W/contr In Process Unspecified. EDMS 21:38 No provider procedures requiring assistance completed. jw7 21:43 Deisy Kraus MD is Referral Physician. sp4 21:45 Provided Education on: discharge instructions and medication usage. jw7 21:50 IV discontinued, intact, bleeding controlled, No redness/swelling at site. Pressure rv dressing applied. Administered Medications: 19:55 Drug: metroNIDAZOLE PO 500 mg PO once Route: PO; jw7 21:37 Follow up: Response: No adverse reaction jw7 19:55 Drug: Cephalexin PO 500 mg PO once Route: PO; jw7 21:38 Follow up: Response: No adverse reaction jw7 19:55 Drug: Ondansetron PO 4 mg PO once Route: PO; jw7 21:38 Follow up: Response: No adverse reaction; Marked relief of symptoms jw7 19:56 Drug: NS 0.9% IV 1000 ml IV at 1 bolus Per protocol; 1000 mL bolus Route: IV; Rate: 1 jw7 bolus; Site: right antecubital; 21:37 Follow up: Response: No adverse reaction; IV Status: Completed infusion; IV Intake: jw7 1000ml Medication: 21:38 VIS not applicable for this client. jw7 Intake: 21:37 IV: 1000ml; Total: 1000ml. jw7 Outcome: 21:44 Discharge ordered by . sp4 21:50 Discharged to home ambulatory, rv 21:50 Condition: good 21:50 Discharge instructions given to patient, Instructed on discharge instructions, follow up and referral plans. Demonstrated understanding of instructions, follow-up care, medications, Prescriptions given X 2, 21:50 Patient left the ED. rv Signatures: Dispatcher [employer] EDMS Jona Moralez PA PA cp Vicente, Ronaldo RN RN rv Joyce [email or web address] Kelsie Hernandez RN RN jw7 John Banerjee MD MD sp4 Anne Brink RN RN cm10 Susan Gillespie pm6 Corrections: (The following items were deleted from the chart) 22:03 22:02 Provided Education on: discharge instructions and medication usage. jw7 jw7
--- NOTE | 2023-10-08 21:44 | EDPHYS ---
Physician Documentation [facility] Name: Sadi Ashton Age: 43 yrs Sex: Male : 1980 Arrival Date: 10/08/2023 Time: 19:13 Bed 18 Private MD: ED Physician John Banerjee HPI: 10/08 19:24 This 43 yrs old Black Male presents to ER via Unassigned with complaints of Swollen sp4 Glands. 19:32 Right upper neck and submandibular swelling since Monday yesterday. Pain with sp4 swallowing . 21:39 43-year-old male presents with acute onset of right upper neck swelling right sp4 submandibular swelling associated with pain with swallowing. This has happened yesterday. . Historical: - Allergies: 19:32 No Known Allergies; cm10 - Home Meds: 19:32 None [Active]; cm10 - PMHx: 19:32 Migraines; cm10 - PSHx: 19:32 Tumor Removal (Bladder); cm10 - Immunization history:: Adult Immunizations up to date. - Social history:: Smoking status: Patient denies any tobacco usage or history of. - Family history:: not pertinent. ROS: 21:39 Constitutional: Negative for fever, chills, and weight loss, Neck: Negative for injury, sp4 positive right upper neck swelling right submandibular swelling 21:39 All other systems are negative, Exam: 21:39 Constitutional: This is a well developed, well nourished patient who is awake, alert, sp4 and in no acute distress. Head/Face: Normocephalic, atraumatic. Eyes: Pupils equal round and reactive to light, extra-ocular motions intact. Lids and lashes normal. Conjunctiva and sclera are not injected. Cornea within normal limits. Periorbital areas with no swelling, redness, or edema. ENT: Nares patent. No nasal discharge, no septal abnormalities noted. Tympanic membranes are normal and external auditory canals are clear. Oropharynx with no redness, swelling, or masses, exudates, or evidence of obstruction, uvula midline. Mucous membranes moist. Positive right upper neck swelling in the right submandibular swelling with tenderness to palpation. Neck: Trachea midline, no thyromegaly or masses palpated, and no cervical lymphadenopathy. Supple, full range of motion without nuchal rigidity, or vertebral point tenderness. Positive right submandibular swelling Chest/axilla: Normal chest wall appearance and motion. Nontender with no deformity. No lesions are appreciated. Cardiovascular: Regular rate and rhythm with a normal S1 and S2. No gallops, murmurs, or rubs. Normal PMI, no JVD. No pulse deficits. Respiratory: Lungs have equal breath sounds bilaterally, clear to auscultation and percussion. No rales, rhonchi or wheezes noted. No increased work of breathing, no retractions or nasal flaring. Abdomen/GI: Soft, non-tender, with normal bowel sounds. No distension or tympany. No guarding or rebound. No evidence of tenderness throughout. Back: No spinal tenderness. No costovertebral tenderness. There is sacral decubitus ulcer that is covered by the wound VAC. Skin: Warm, dry with normal turgor. Normal color with no rashes, no lesions, and no evidence of cellulitis. MS/ Extremity: Pulses equal, no cyanosis. Neurovascular intact. Full, normal range of motion. Neuro: Awake and alert, GCS 15, oriented to person, place, time, and situation. Cranial nerves II-XII grossly intact. Motor strength 5/5 in all extremities. Sensory grossly intact. Psych: Awake, alert, with orientation to person, place and time. Behavior, mood, and affect are within normal limits Vital Signs: 19:29 BP 164 / 95; Pulse 77; Resp 18; Temp 99; Pulse Ox 100% on R/A; Weight 120.2 kg; Height cm10 6 ft. 4 in. ; Pain 1/10; 20:06 BP 125 / 91; Pulse 70; Resp 16 S; Pulse Ox 97% on R/A; jw7 21:31 BP 124 / 80; Pulse 67; Resp 16 S; Pulse Ox 97% on R/A; jw7 19:29 Body Mass Index 32.26 (120.20 kg, 193.04 cm) cm10 19:29 Pain Scale: Adult cm10 MDM: 19:34 Patient medically screened. sp4 21:39 Differential Diagnosis altered mental status, sepsis, flu, Neck abscess. Data reviewed: sp4 vital signs, nurses notes, old medical records, lab test result(s), radiologic studies, CT scan. ED course: EXAM DESCRIPTION: CT - Soft Tissue Neck W/Contr CLINICAL HISTORY: Right upper neck , submandibular swelling COMPARISON: No comparisons TECHNIQUE All CT scans are performed using dose optimization technique as appropriate and may include automated exposure control or mA/KV adjustment according to patient size. FINDINGS: Nasopharyngeal tissues are normal in appearance. Fossa Rosenm?ller are normal. There is moderate enlargement of the right submandibular gland relative to the left. No ranula is seen. Normal thyroid gland. IMPRESSION: Moderate inflammatory changes involving the right submandibular gland. This may indicate sialadenitis. . ED course: CL adenitis based on the CT report, right submandibular gland swelling and inflammation. Will prescribe Keflex and Flagyl. Stable for discharge home with p.o. as needed ibuprofen as well. 10/08 19:33 Order name: CBC with Diff; Complete Time: 21:36 sp4 10/08 19:33 Order name: CMP; Complete Time: 21:36 sp4 10/08 19:33 Order name: CT Soft Tissue Neck W/contr; Complete Time: 21:36 sp4 10/08 19:33 Order name: IV Saline Lock; Complete Time: 19:49 sp4 10/08 19:33 Order name: Labs collected and sent; Complete Time: 19:49 sp4 Administered Medications: 19:55 Drug: metroNIDAZOLE PO 500 mg PO once Route: PO; jw7 21:37 Follow up: Response: No adverse reaction jw7 19:55 Drug: Cephalexin PO 500 mg PO once Route: PO; jw7 21:38 Follow up: Response: No adverse reaction jw7 19:55 Drug: Ondansetron PO 4 mg PO once Route: PO; jw7 21:38 Follow up: Response: No adverse reaction; Marked relief of symptoms jw7 19:56 Drug: NS 0.9% IV 1000 ml IV at 1 bolus Per protocol; 1000 mL bolus Route: IV; Rate: 1 jw7 bolus; Site: right antecubital; 21:37 Follow up: Response: No adverse reaction; IV Status: Completed infusion; IV Intake: jw7 1000ml Disposition Summary: 10/08/23 21:44 Discharge Ordered Notes: Ibuprofen OTC 800 mg every 8 hours PRN pain Location: Home sp4 Problem: new sp4 Symptoms: have improved sp4 Condition: Stable sp4 Diagnosis - Right submandibular gland inflammation and infection, right submandibular gland sp4 sialodenitis Followup: sp4 - With: Deisy Kraus MD - When: 7 - 10 days - Reason: Recheck today's complaints Discharge Instructions: - Discharge Summary Sheet sp4 - Salivary Gland Infection sp4 Forms: - Patient Portal Instructions sp4 Prescriptions: - Cephalexin 500 mg Oral Capsule - take 1 capsule ORAL route every 8 hours for 10 days; 30 capsule; Refills: 0, sp4 Product Selection Permitted - Flagyl 500 mg Oral Tablet - take 1 tablet ORAL route every 8 hours for 10 days; 30 tablet; Refills: 0, sp4 Product Selection Permitted Signatures: Dispatcher [employer] Kelsie Bennett, RN RN jw7 John Banerjee MD MD sp4 Anne Brink RN RN cm10
[2023-10-08 22:55] VITALS: BP 124/80; TEMP 99; O2SAT 97
== END ==
LOC: ER 19:13
DX: K11.20 Sialoadenitis, unspecified (principal)
CPT/HCPCS: 96361; 85025; 36415; 80053; 70491; 96360; 99284; Q9967; Q0162; J7030

== ENCOUNTER 2024-09-01 10:20 | Emergency (ER) | payer BC ==
[2024-09-01] MEDS ORDERED: ASPIRIN 81 MG CHEWABLE TABLET ONE (10:57)
[2024-09-01 11:34] LABS: Absolute Eosinophils 0.2 K/uL (0-0.5); Absolute Lymphocytes (CBC) 1.5 K/uL (0.7-4.9); Absolute Monocytes 0.2 K/uL (0.1-1.3); Absolute Neutrophil 1.9 K/uL (1.8-8.0); Basophils % 0.8 % (0-1.3); Eosinophils % 5.8 % (0-4.4); Hematocrit 44.3 % (39.6-49.0); Hemoglobin 14.8 g/dL (13.6-17.9); Lymphocytes % 38.7 % (15.3-44.8); MCHC 33.3 g/dL (32.0-36.0); MCV 83.9 fL (80-100); MPV 7.8 fL (7.6-11.3); Monocytes % 5.3 % (3.3-12.3); Neutrophils % 49.4 % (41.7-73.7); Platelets 209 thou/uL (152-406); RBC Red Blood Cell Count 5.28 M/uL (4.33-5.43); Red Cell Distribution Width 13.6 % (12.1-15.2)
[2024-09-01 11:36] LABS: Protime INR 1.07
--- NOTE | 2024-09-01 11:45 | RAD REPORT ---
EXAM: Chest Single View HISTORY: PALPITATIONS COMPARISON: None. FINDINGS: LUNGS/PLEURA: The lungs are clear. No pleural effusions or pneumothorax. No pulmonary edema. MEDIASTINUM: The mediastinal silhouette is within normal limits. CARDIAC: The cardiac silhouette is within normal limits. UPPER ABDOMEN: No significant abnormality. BONES: No acute fracture. LINES/TUBES/OTHER: N/A IMPRESSION: No evidence of acute cardiopulmonary disease.
[2024-09-01 11:56] LABS: ALT/SGPT 32 U/L (16-61); AST/SGOT 21 U/L (15-37); Albumin 3.7 g/dL (3.4-5.0); Alkaline Phosphatase 59 U/L (45-117); Anion Gap 9.8 mEq/L (5.0-15.0); BUN Blood Urea Nitrogen 8 mg/dL (7-18); Bicarbonate 27 mEq/L (21-32); Bilirubin Total 0.4 mg/dL (0.2-1.0); Globulin 3.7 g/dL (2.3-3.5); Glomerular Filtration Rate 84 ml/min (=/>90); Glucose Level 127 mg/dL (74-106); Potassium 3.8 mEq/L (3.5-5.1); Protein, Total 7.4 g/dL (6.4-8.2); Sodium Level 141 mEq/L (136-145); Troponin High Sensitivity 8.4 pg/mL (<58.9)
[2024-09-01 11:58] LABS: Bilirubin Direct < 0.2 mg/dL (0-0.2); Bilirubin Indirect, Calculated 0.2 mg/dL (0.2-0.8)
--- NOTE | 2024-09-01 14:59 | EDPHYS ---
Physician Documentation [facility] Name: Sadi Ashton Age: 44 yrs Sex: Male : 1980 Arrival Date: 09/01/2024 Time: 10:20 Bed 18 Private MD: ED Physician Cain White HPI: 09/01 10:48 This 44 yrs old Black Male presents to ER via Ambulatory with complaints of Chest Pain. cp 10:48 The patient has elevated blood pressure and discovered this at home, with a home cp device. Onset: The symptoms/episode began/occurred this morning. reports multiple readings this morning of elevated blood pressure with highest systolic reading of 163. 10:48 Associated signs and symptoms: Pertinent positives: radiating pain to right shoulder cp and generalized "feeling hot" sensation, Pertinent negatives: abdominal pain, cough, diarrhea, fever, vomiting. Historical: - Allergies: 10:37 No Known Allergies; hb - PMHx: 10:37 Migraines; hb - PSHx: 10:37 Tumor Removal (Bladder); hb - Immunization history:: Adult Immunizations up to date. - Infectious Disease History:: Denies. - Social history:: Smoking status: unknown. ROS: 10:50 Constitutional: Negative for body aches, chills, fever, poor PO intake, cp 10:50 Cardiovascular: Positive for chest pain, palpitations, Negative for edema, cp 10:50 Respiratory: Negative for cough, shortness of breath, wheezing, 10:50 Abdomen/GI: Negative for abdominal pain, vomiting, diarrhea, constipation, 10:50 Eyes: Negative for injury, pain, redness, and discharge, cp 10:50 Back: Negative for pain at rest, pain with movement, cp 10:50 Neuro: Negative for altered mental status, dizziness, headache, weakness, 10:50 All other systems are negative, Exam: 10:49 ECG was reviewed by the Attending Physician. cp 10:55 Constitutional: The patient appears in no acute distress, alert, awake, cp non-diaphoretic, non-toxic, well developed, well nourished, overweight 10:55 Head/Face: Normocephalic, atraumatic. cp 10:55 Eyes: Periorbital structures: appear normal, Conjunctiva: normal, no exudate, no cp injection, Sclera: no appreciated abnormality, Lids and lashes: appear normal, bilaterally, 10:55 ENT: External ear(s): are unremarkable, Nose: is normal, Mouth: Lips: moist, Oral mucosa: moist, Posterior pharynx: Airway: no evidence of obstruction, patent, 10:55 Neck: ROM/movement: is normal, is supple, without pain, no range of motions limitations, 10:55 Chest/axilla: Inspection: normal, Palpation: is normal, no crepitus, no tenderness, 10:55 Cardiovascular: Rate: normal, Rhythm: regular, Edema: is not appreciated, JVD: is not appreciated, 10:55 Respiratory: the patient does not display signs of respiratory distress, Respirations: cp normal, no use of accessory muscles, no retractions, labored breathing, is not present, Breath sounds: are clear throughout, no decreased breath sounds, no stridor, no wheezing, 10:55 Abdomen/GI: Inspection: abdomen appears normal, Bowel sounds: active, all quadrants, Palpation: abdomen is soft and non-tender, in all quadrants, 10:55 Back: CVA tenderness, is absent, 10:55 Neuro: Orientation: to person, place \\T\\ time. Mentation: is normal, Motor: moves all fours, strength is normal, Sensation: is normal, 14:35 ECG was reviewed by the Attending Physician. Vital Signs: 10:36 BP 157 / 100; Pulse 80; Resp 18; Temp 98.8; Pulse Ox 99% on R/A; Weight 127.01 kg; hb Height 6 ft. 3 in. ; Pain 5/10; 12:00 BP 109 / 76; Pulse 65; Resp 17; Pulse Ox 99% ; me1 13:00 BP 115 / 84; Pulse 63; Resp 15; Pulse Ox 98% ; me1 14:00 BP 117 / 87; Pulse 70; Resp 17; Pulse Ox 99% ; me1 14:59 BP 124 / 87; Pulse 63; Resp 14; Pulse Ox 98% ; me1 10:36 Body Mass Index 35.00 (127.01 kg, 190.5 cm) hb 10:36 Pain Scale: Adult hb MDM: 10:30 Medical Screening Exam initiated cp 09/01 10:32 Order name: Basic Metabolic Panel; Complete Time: 12:12 09/01 12:12 Interpretation: Normal except: CL 108; GLUC 127; GFR 84. cp 09/01 10:32 Order name: CBC with Diff; Complete Time: 11:44 cp 08 11:44 Interpretation: Normal except: WBC 3.90; EOSINOPHIL % 5.8. cp 09/01 10:32 Order name: LFT's; Complete Time: 12:12 cp 09/01 10:32 Order name: Magnesium; Complete Time: 12:12 cp 09/01 10:32 Order name: PT-INR; Complete Time: 11:44 cp 09/01 10:32 Order name: Troponin HS; Complete Time: 12:12 cp 09/01 14:12 Order name: Troponin High Sensitivity; Complete Time: 14:50 cp 09/01 14:50 Interpretation: Reviewed. 09/01 10:32 Order name: XRAY Chest (1 view); Complete Time: 12:12 cp 09/01 14:12 Order name: EKG; Complete Time: 14:13 cp 09/01 10:32 Order name: Cardiac monitoring; Complete Time: 10:55 cp 09/01 10:32 Order name: EKG - Nurse/Tech; Complete Time: 10:41 cp 09/01 10:32 Order name: IV Saline Lock; Complete Time: 11:25 cp 09/01 10:32 Order name: Labs collected and sent; Complete Time: 11:25 cp 09/01 10:32 Order name: O2 Per Protocol; Complete Time: 10:42 cp 09/01 10:32 Order name: O2 Sat Monitoring; Complete Time: 10:42 cp 09/01 14:12 Order name: EKG - Nurse/Tech; Complete Time: 14:32 cp EC:49 Rate is 71 beats/min. Rhythm is regular. MT interval is normal. QRS interval is normal. cp QT interval is normal. T waves are Inverted in lead aVR. Interpreted by me. Reviewed by me. 14:35 Rate is 65 beats/min. Rhythm is regular. MT interval is normal. QRS interval is normal. cp QT interval is normal. T waves are Inverted in lead aVR. Interpreted by me. Reviewed by me. Administered Medications: 11:00 Drug: Aspirin PO Chewable Tablet 324 mg PO once; 81 mg tablets x 4 Route: PO; aa5 11:30 Follow up: Response: No adverse reaction aa5 Disposition Summary: 09/01/24 14:59 Discharge Ordered Notes: Location: Home cp Problem: new cp Symptoms: have improved cp Condition: Stable cp Diagnosis - Chest pain, unspecified cp - Palpitations cp Followup: cp - With: Fernando Gray MD - When: 2 - 3 days - Reason: Recheck today's complaints Discharge Instructions: - Discharge Summary Sheet cp - Nonspecific Chest Pain, Adult cp - Palpitations cp - Aspirin and Your Heart cp Forms: - Medication Reconciliation Form cp - Antibiotic Education cp - Prescription Opioid Use cp - Patient Portal Instructions cp - Leadership Thank You Letter cp Signatures: Dispatcher [employer] EDMS Ivette Montano, RN RN aa5 Jona Moralez PA PA cp Kiana Armas, RN RN Cindy Vázquez RN RN me1 Corrections: (The following items were deleted from the chart) 10:32 10:32 BASIC METABOLIC PANEL+C.LAB.BRZ ordered. EDMS EDMS 10:32 10:32 CBC+H.LAB.BRZ ordered. EDMS EDMS 10:32 10:32 HEPATIC FUNCTION+C.LAB.BRZ ordered. EDMS EDMS 10:32 10:32 MAGNESIUM+C.LAB.BRZ ordered. EDMS EDMS 10:32 10:32 PROTIME (+INR)+COAG.LAB.BRZ ordered. EDMS EDMS 10:32 10:32 Troponin High Sensitivity+C.LAB.BRZ ordered. EDMS EDMS 10:33 10:32 Chest Single View+RAD.RAD.BRZ ordered. EDMS EDMS
--- NOTE | 2024-09-01 14:59 | ER ---
Nurse's Notes [facility] Name: Sadi Ashton Age: 44 yrs Sex: Male : 1980 Arrival Date: 09/01/2024 Time: 10:20 Bed 18 Private MD: Diagnosis: Chest pain, unspecified;Palpitations Presentation: 09/01 10:36 Chief complaint: Intermittent chest pain that radiates to right shoulder, hot flashed, hb and headache upon waking today. Coronavirus screen: At this time, the client does not indicate any symptoms associated with coronavirus-19. Ebola Screen: No symptoms or risks identified at this time. Initial Sepsis Screen: Does the patient meet any 2 criteria? No. Patient's initial sepsis screen is negative. Does the patient have a suspected source of infection? No. Patient's initial sepsis screen is negative. Risk Assessment: Do you want to hurt yourself or someone else? Patient reports no desire to harm self or others. Onset of symptoms was September 01, 2024. 10:36 Method Of Arrival: Ambulatory hb 10:36 Acuity: IMER 3 hb Historical: - Allergies: 10:37 No Known Allergies; hb - PMHx: 10:37 Migraines; hb - PSHx: 10:37 Tumor Removal (Bladder); hb - Immunization history:: Adult Immunizations up to date. - Infectious Disease History:: Denies. - Social history:: Smoking status: unknown. Screenin:00 [facility] ED Fall Risk Assessment (Adult) History of falling in the last 3 months, aa5 including since admission No falls in past 3 months (0 pts) Confusion or Disorientation No (0 pts) Intoxicated or Sedated No (0 pts) Impaired Gait No (0 pts) Mobility Assist Device Used No (0 pt) Altered Elimination No (0 pt) Score/Fall Risk Level 0 - 2 = Low Risk Oriented to surroundings, Maintained a safe environment, Educated pt \T\ family on fall prevention, incl call for assistance when getting out of bed. Abuse screen: Denies threats or abuse. Nutritional screening: No deficits noted. Tuberculosis screening: No symptoms or risk factors identified. Assessment: 10:55 General: Appears comfortable, Behavior is calm, cooperative. Pain: Complains of pain in aa5 chest Pain radiates to right shoulder Pain currently is 5 out of 10 on a pain scale. Pain began this morning Is continuous. Neuro: Level of Consciousness is awake, alert, obeys commands, Oriented to person, place, time, situation. Cardiovascular: Reports chest pain, Denies palpitations, shortness of breath, Heart tones S1 S2 present Rhythm is sinus rhythm. Respiratory: Airway is patent Respiratory effort is even, unlabored, Respiratory pattern is regular, symmetrical. GI: No signs and/or symptoms were reported involving the gastrointestinal system. : No signs and/or symptoms were reported regarding the genitourinary system. EENT: No signs and/or symptoms were reported regarding the EENT system. Derm: Skin is dry, Skin is normal, Skin temperature is warm. Musculoskeletal: Range of motion: intact in all extremities. 12:16 Reassessment: PA at bedside . aa5 Vital Signs: 10:36 BP 157 / 100; Pulse 80; Resp 18; Temp 98.8; Pulse Ox 99% on R/A; Weight 127.01 kg; hb Height 6 ft. 3 in. ; Pain 5/10; 12:00 BP 109 / 76; Pulse 65; Resp 17; Pulse Ox 99% ; me1 13:00 BP 115 / 84; Pulse 63; Resp 15; Pulse Ox 98% ; me1 14:00 BP 117 / 87; Pulse 70; Resp 17; Pulse Ox 99% ; me1 14:59 BP 124 / 87; Pulse 63; Resp 14; Pulse Ox 98% ; me1 10:36 Body Mass Index 35.00 (127.01 kg, 190.5 cm) hb 10:36 Pain Scale: Adult hb ED Course: 10:24 Patient arrived in ED. mg5 10:25 Jona Moralez PA is PHCP. cp 10:25 Cain White MD is Attending Physician. cp 10:37 Triage completed. hb 10:37 Arm band placed on. hb 10:41 Ivette Montano, RN is Primary Nurse. aa5 10:55 Patient has correct armband on for positive identification. Bed in low position. Call aa5 light in reach. Side rails up X 1. Client placed on continuous cardiac and pulse oximetry monitoring. NIBP monitoring applied. awake overnight monitor on. Pulse ox on. NIBP on. 11:18 Initial lab(s) drawn, by me, sent to lab. Inserted saline lock: 20 gauge in right aa5 antecubital area, using aseptic technique. Blood collected. Flushed with 10 mL NS. 11:26 XRAY Chest (1 view) In Process Unspecified. EDMS 12:17 No provider procedures requiring assistance completed. Patient maintains SpO2 aa5 saturation greater than 95% on room air. 12:50 Report given to FIONA White. aa5 14:14 Provided Education on: POC. Verbalized understanding.. me1 14:18 Troponin High Sensitivity Sent. me1 14:32 EKG done, by ED staff, reviewed by Jona JACOB. me1 14:58 Fernando Gray MD is Referral Physician. cp 15:10 IV discontinued, intact, bleeding controlled, No redness/swelling at site. Pressure me1 dressing applied. Administered Medications: 11:00 Drug: Aspirin PO Chewable Tablet 324 mg PO once; 81 mg tablets x 4 Route: PO; aa5 11:30 Follow up: Response: No adverse reaction aa5 Medication: 12:16 VIS not applicable for this client. aa5 Outcome: 14:59 Discharge ordered by MD. cp 15:10 Discharged to home ambulatory, me1 15:10 Condition: stable 15:10 Discharge instructions given to patient, Instructed on discharge instructions, follow up and referral plans. Demonstrated understanding of instructions, follow-up care, 15:11 Patient left the ED. me1 Signatures: Dispatcher [employer] EDTN Ivette Montano RN RN aa5 Jona Moralez PA PA cp Baxter, Heather, RN RN Cindy Vázquez RN RN me1 Cintia Jean mg5
[2024-09-01 16:47] VITALS: TEMP 98.8
[2024-09-01 17:00] VITALS: BP 124/87; O2SAT 98
== END 2024-09-01 15:11 | disposition home or self-care (01) ==
LOC: ER 10:20
DX: R07.9 Chest pain, unspecified (principal); R00.2 Palpitations
CPT/HCPCS: 36415; 71045; 80048; 80076; 83735; 84484; 85025; 85610; 99285